=== PATIENT | female | born 1990 | race Caucasian/White ===

== ENCOUNTER 2019-07-09 08:47 | Emergency (ER) | payer OTHER ==
[~2019-07-09] VITALS: Ht 162.6 cm; Wt 90.7 kg
[2019-07-09] MEDS ORDERED: VENTOLIN HFA 1818 GM INH (10:10)
[2019-07-09] MEDS ORDERED: TESSALON PERLE100 M1 PO (10:14)
[2019-07-09 10:36] VITALS: BP 147/100
== END 2019-07-09 10:37 | disposition home or self-care (01) ==
LOC: M.ERS 08:47
DX: J40 Bronchitis, not specified as acute or chronic (principal); F17.210 Nicotine dependence, cigarettes, uncomplicated